=== PATIENT | male | born 1995 | race Hispanic/Latino ===

== ENCOUNTER 2017-02-19 13:50 | Emergency (ER) | payer SELFPAY ==
[~2017-02-19] VITALS: Ht 152.4 cm; Wt 55.0 kg
[2017-02-19 14:27] LABS: HEMATOCRIT 48.2 % (39.0-50.0); HEMOGLOBIN 17.3 g/dl (14.0-18.0); IMMATURE GRANULOCYTES 0.2 % (0.0-1.0); MEAN CELL VOLUME 87.2 fL CALC (80.0-100.0); MEAN CORPUSCULAR HGB 31.3 pG CALC (26.0-32.0); MEAN CORPUSCULAR HGB CONC 35.9 g/L CALC (32.0-36.0); NEUT# 6.18 thou/uL (1.82-7.42); RED BLOOD COUNT 5.53 mill/uL (4.70-6.10); RED CELL DISTRI WIDTH 11.9 % (11.5-15.5)
[2017-02-19 14:46] LABS: ALBUMIN 5.5 g/dL (3.2-5.0); ALKALINE PHOSPHATASE 104 u/l (38-126); AMYLASE 49 u/l (30-110); ANION GAP 20 (6-22 (CALC)); BILIRUBIN, TOTAL 0.9 mg/dL (0.0-1.4); BUN 12 mg/dL (9-20); BUN/CREATININE RATIO 13 (12-20 (CALC)); CALCIUM 10.4 mg/dL (8.4-10.2); CARBON DIOXIDE 22 mmol/l (22-30); CHLORIDE 104 mmol/l (95-108); GFR > 60 ML/MIN (>=60 (CALC)); GFR FOR AFR.AMER. > 60 ML/MIN (>=60 (CALC)); GLUCOSE 93 mg/dL (75-110); LIPASE 59 u/l (23-300); POTASSIUM 3.9 mmol/l (3.5-5.1); SGOT/AST 29 u/l (17-59); SGPT/ALT 35 u/l (21-72); SODIUM 143 mmol/l (137-146); TOTAL PROTEIN 8.8 g/dL (6.3-8.2)
[2017-02-19] MEDS ORDERED: ZOFRAN ODT4 MG PO (15:04)
[2017-02-19 15:06] VITALS: BP 137/95
== END 2017-02-19 15:07 | disposition home or self-care (01) | DRG 392 ==
LOC: ED 13:50
PROVIDERS: Emergency Medicine
DX: A08.4 Viral intestinal infection, unspecified (principal)